=== PATIENT | male | born 1975 | race African-American/Black ===

== ENCOUNTER 2016-12-24 13:38 | Inpatient (IN) | payer MEDICAID, SELFPAY ==
[~2016-12-24] VITALS: Ht 170.2 cm; Wt 64.5 kg
[~2016-12-24 13:38] MED LIST: PAXI20TA OR; TRAZ100T OR
[2016-12-24 14:54] LABS: MEAN CORPUSCULAR HEMOGLOBIN 30.6 pg (27.0-33.0); MEAN CORPUSCULAR VOLUME 89.8 fl (80.0-96.0); PLATELET COUNT, AUTOMATED 253 10^3/uL (150-450); RED CELL DISTRIBUTION WIDTH 12.6 % (11.5-14.5); WHITE BLOOD COUNT 2.9 10^3/uL (4.0-10.0)
[2016-12-24 15:17] LABS: METHADONE URINE NEGATIVE (NEGATIVE)
[2016-12-24 15:23] LABS: BASO % 0.7 % (0.0-1.0); EOS % 0.7 % (0.0-3.0); LYMPH # 1.6 10^3/uL (1.5-4.5); LYMPH % 52.9 % (24.0-44.0); MONO # 0.2 10^3/uL (0.0-0.8); MONO % 8.1 % (0.0-5.0); NEUTROPHILS # 1.1 10^3/uL (1.8-7.7); NEUTROPHILS % 37.6 % (36.0-66.0)
[2016-12-24 15:25] LABS: ALBUMIN 3.9 GM/DL (3.2-5.2); ALBUMIN/GLOBULIN RATIO 1.22 (1.00-1.93); ALKALINE PHOSPHATASE 35 U/L (45-117); ALT/SGPT 47 U/L (12-78); ANION GAP 8 MEQ/L (8-16); AST/SGOT 42 U/L (7-37); BILIRUBIN,DIRECT 0.2 MG/DL (0.0-0.2); BILIRUBIN,TOTAL 0.7 MG/DL (0.2-1.0); BLOOD UREA NITROGEN 9 MG/DL (7-18); CALCIUM LEVEL 8.7 MG/DL (8.5-10.1); CARBON DIOXIDE LEVEL 26 MEQ/L (21-32); CHLORIDE LEVEL 108 MEQ/L (98-107); CREATININE FOR GFR 0.95 MG/DL (0.70-1.30); DIFF SLIDE NUMBER 294; GLOMERULAR FILTRATION RATE > 60.0 (>60); GLUCOSE, FASTING 81 MG/DL (70-105); POTASSIUM SERUM 4.4 MEQ/L (3.5-5.1); SODIUM LEVEL 142 MEQ/L (136-145); TOTAL PROTEIN 7.1 GM/DL (6.4-8.2)
[2016-12-24 22:01] VITALS: BP 120/68
[2016-12-25] MEDS ORDERED: MOM 30ML SUSPENSION UDC PO PRN (01:00)
[2016-12-25] MEDS ORDERED: OLANZapine ORAL DISINTEGRATING TAB 5MG PO PRN (01:00)
[2016-12-25] MEDS ORDERED: MAALOX 30 ML SUSP *UDC PO PRN (01:00)
[2016-12-25] MEDS ORDERED: traZODone 50 MG TAB PO PRN (01:00)
[2016-12-25 06:27] VITALS: BP 104/56
--- NOTE | 2016-12-25 08:41 | HPEPDOC ---
[facility] Medical History & Physical Date of Admission Dec 24, 2016 History and Physical PCP: None ATTENDING: Dr. Abimael Orantes HPI: 41yoM admitted to [facility] for unspecified depressive disorder, being medically examined today. No acute medical complaints today. Patient states today that he has been out of his medications for a few years. Denies any fevers, chills, weakness, fatigue, KAY, CP, SOB, cough, palpitations, abdominal pain, N/V/D or changes in bowel or bladder habits. PMHx: Depression Anxiety Insomnia PSHX: Left middle finger amputation related to wood splitter injury SOCHX: Resides in: [place] Marital Status: Kids: 6 Employment: Does odd jobs Tobacco use: One pack every 3 days ETOH: One to 2 drinks every other day Illicit Drugs: Marijuana every other day. History of cocaine IV Drug Use: Denies Tattoos done unprofessionally: 2 FAMHX: Mother: , [place] Father: Unknown Siblings: 2 Alive, well Children: Alive, well Unexpected deaths due to medical reasons: 1 Brother gunshot wound. ROS: As noted in HPI, otherwise 11pt ROS of systems reviewed and unremarkable. PE: GEN: 41yoM, appears stated age. Well-nourished, well developed. No acute distress. Alert and oriented x 3. Pleasant, interactive. HEENT: Normocephalic, atraumatic. Pupils are equal, round, and reactive to light. Extraocular movements are intact. No nystagmus appreciated. Sclera are nonicteric. Conjunctiva without injection. Nose midline. Nasal turbinates without bogginess. EACs both patent BL. TMs both visualized and wise with good cone of light, no bulging or erythema. No facial asymmetry. Moist mucous membranes. Dentition fair. Pharynx pink and moist, no cobblestoning. Neck supple , trachea midline. No lymphadenopathy or thyromegaly appreciated. CHEST: Regular rate and rhythm, +S1, +S2 LUNGS: Clear to auscultation bilaterally. No wheezes, rales, or rhonchi. Breathing appears symmetric and easy. Patient is speaking in full sentences. No accessory muscle use. ABD: Round, soft, non-tender, non-distended. +Bowel sounds throughout. No rebound or guarding. No costovertebral angle tenderness. EXT: Pulses 2+ bilaterally dorsalis pedis and radial. No lower extremity edema appreciated. SKIN: [place], dry, warm. Capillary refill <2sec. No rashes. NEURO: Alert and oriented x 3. Cranial nerves III-XII are intact. No focal deficits appreciated. EKG: Pending. A&P: 41yoM admitted to [facility] for unspecified depressive disorder 1. Psych. Plan per Psychiatry.Obtain baseline EKG to assure the safety of psychiatric medications as they can prolong the QT interval. 2. Nicotine dependence. Patch available. 3. Elevated AST. Recheck CMP. 4. Follow up. No Primary Care Provider. Will attempt to establish PCP on discharge. 5. Substance use. Per psychiatry. 6. Tattoos done unprofessionally. Patient agrees to HIV and hepatitis screening. 7. Add CBC to admission labs 8. Staff member Dmitriy present throughout exam. Vital Signs Vital Signs Date Time Temp Pulse Resp B/P (MAP) Pulse Ox O2 Delivery O2 Flow Rate FiO2 12/25/16 06:27 99.0 52 14 104/56 (72) 12/24/16 17:33 98 12/24/16 13:38 Room Air Laboratory Data Labs 24H Laboratory Tests 2 12/24/16 14:42: Immature Granulocyte % (Auto) 0.0, Neutrophils (%) (Auto) 37.6, Lymphocytes (%) (Auto) 52.9H, Monocytes (%) (Auto) 8.1H, Eosinophils (%) (Auto) 0.7, Basophils ( %) (Auto) 0.7, Immature Granulocyte # (Auto) 0.0, Neutrophils # (Auto) 1.1L, Lymphocytes # (Auto) 1.6, Monocytes # (Auto) 0.2, Eosinophils # (Auto) 0.0, Basophils # (Auto) 0.0, Nucleated Red Blood Cells % (auto) 0.0, Platelet Estimate , Anion Gap 8, Glomerular Filtration Rate > 60.0, Calcium Level 8.7, Aspartate Amino Transf (AST/SGOT) 42H, Alanine Aminotransferase (ALT/SGPT) 47, Alkaline Phosphatase 35L, Total Bilirubin 0.7, Direct Bilirubin 0.2, Total Protein 7.1, Albumin 3.9, Albumin/Globulin Ratio 1.22, Thyroid Stimulating Hormone (TSH) 0.640, Salicylates Level 2.5L, Urine Amphetamines Screen NEGATIVE , Urine Benzodiazepines Screen NEGATIVE, Urine Opiates Screen NEGATIVE, Urine Methadone Screen NEGATIVE, Acetaminophen Level < 2.0L, Urine Barbiturates Screen NEGATIVE, Urine Phencyclidine Screen NEGATIVE, Urine Cocaine Metabolite Screen POSITIVEH, Urine Cannabinoids Screen POSITIVEH, Ethyl Alcohol Level 0.012H CBC/BMP Laboratory Tests 12/24/16 14:42 Red Blood Count 4.22 L, Mean Corpuscular Volume 89.8, Mean Corpuscular Hemoglobin 30.6, Mean Corpuscular Hemoglobin Concent 34.0, Red Cell Distribution Width 12.6 Home Medications Scheduled Paroxetine (Paxil) 20 Mg Tab, 20 MG OR QAM Trazodone Hcl (Trazodone Hcl) 100 Mg Tab, 100 MG OR QHS Allergies Coded Allergies: Sertraline (Verified Adverse Reaction, Intermediate, STATES INCREASED BP, 05/24/12) No Known Allergies (Verified , 05/20/11) Tess Taylor Dec 25, 2016 08:41
[2016-12-25 09:18] LABS: MEAN CORPUSCULAR HEMOGLOBIN 30.8 pg (27.0-33.0); MEAN CORPUSCULAR HGB CONC 34.1 g/dl (32.0-36.5); MEAN CORPUSCULAR VOLUME 90.3 fl (80.0-96.0); PLATELET COUNT, AUTOMATED 247 10^3/uL (150-450); RED CELL DISTRIBUTION WIDTH 12.4 % (11.5-14.5); WHITE BLOOD COUNT 2.5 10^3/uL (4.0-10.0)
[2016-12-25 12:00] VITALS: BP 116/76
--- NOTE | 2016-12-25 17:11 | MHHPE ---
DATE OF ADMISSION: 12/25/2016 LEGAL STATUS AT ADMISSION: 9.39 legal status. CHIEF COMPLAINT: "I've been feeling very depressed." HISTORY OF PRESENT ILLNESS: A 41-year-old male with a history of depression and cocaine abuse, admitted to our unit on a 9.39 legal status. According to the record, patient came to the emergency department because of depression and suicidal thoughts. Patient states that he ran out of medication, because he was living between [place] and [place], so he could not followup with the doctor, so he ran out. He also said that he and his 3 weeks ago and has been feeling more depressed since then. Patient reports feeling depressed, hopeless, useless, "care less about nothing," low energy, insomnia, and intermittent suicidal thoughts. Patient admits to the use of cocaine. Says that he was sober for a prolonged period of time after he was discharged from our unit in 2011. His urine drug screen (UDS) was positive for cocaine and marijuana. His blood alcohol level was 0.12. During the interview there is no evidence of psychotic symptoms. No auditory or visual hallucinations or delusions. PAST MEDICAL HISTORY: Patient denies any acute medical problems. No allergies. PAST PSYCHIATRIC HISTORY: As above, patient was admitted to our service in 2011 for depression and cocaine abuse. Patient also stated that he was admitted three times in [place] and has a history of previous detoxification and rehabilitation programs in the past. FAMILY HISTORY: Patient denies any psychiatric family history. SUBSTANCE ABUSE HISTORY: Patient admits to the use of marijuana and cannabis. Denies other substances, although his blood alcohol level was 0.012. As above, he has history of cocaine and marijuana abuse and has been admitted to detoxification and rehabilitation programs in the past. SOCIAL HISTORY: Patient was raised by his mother. His parents . He graduated high school in special education. Reports having a learning disability in reading, spelling, and math. He has been incarcerated two times. Patient has poor support system. By his report, patient from his 3 weeks ago. Patient says that he rents an apartment here in town. PSYCHIATRIC REVIEW OF SYSTEMS: Bipolar disorder. No evidence of destructibility, grandiosity, fight of ideas, pressured speech, anxiety disorder. Denies panic, agoraphobia, obsessive-compulsive disorder (OCD), washing hands repeatedly, checking things over and over, somatization disorder. Screening for pain, conversion, gastrointestinal (GI), and sexual symptoms negative. Eat disorders: Screening for dieting, use of laxatives, eating in binges is negative. Cognitive disorders: Short and long-term memory impairment, orientation, and general information are negative for cognitive disorder. Psychotic disorders: No evidence of delusions, paranoia, grandiosity, or nondenominational preoccupation. No hallucination. No looseness of associations. PHYSICAL EXAMINATION: As per physician business development assistant. LABORATORY DATA: His CBC is unremarkable. CMP within normal limits except AST of 42. TSH within normal limits. Urine drug screen is positive for cocaine and cannabis. Blood alcohol level is 0.012. MENTAL STATUS EXAMINATION: Patient is dressed in [facility]. Patient is cooperative. His speech is soft and monotone. Has poor eye contact. Mood is anxious and depressed. Affect is restricted. Patient is oriented to time, place, person, and situation. Maintains attention and concentration correctly. Instant recall, recent and remote memory are intact. Thought processes are coherent, logical, and goal directed. Patient does not have auditory or visual hallucinations. Patient does not have paranoid, persecutory, somatic, grandiose, or nondenominational delusions. Patient is reporting suicidal thoughts but denies homicidal ideation. Judgment and insight are limited. DIAGNOSES: [place] I: Unspecified depressive disorder, rule out major depressive disorder, rule out substance-induced mood disorder. Cocaine and cannabis dependency. [place] II: Deferred. [place] III: None acute. Patient was admitted on a 9.39 legal status. Complete history was obtained. With his permission, family will be contacted and database will be expanded. His medication regimen will be reviewed and changed accordingly. He will be provided with protected environment. He will be treated with individual, group, and milieu therapy. He will also receive supportive psychoeducation. Discharge planning will commence immediately. Length of stay will be between 7-10 days. Outpatient followup will be strongly recommended. The treatment plan will focus initially on depression, risk for suicide, and substance abuse.
[2016-12-26 06:31] VITALS: BP 90/56
[2016-12-26 07:34] LABS: ALBUMIN 3.4 GM/DL (3.2-5.2); ALBUMIN/GLOBULIN RATIO 1.06 (1.00-1.93); ALKALINE PHOSPHATASE 31 U/L (45-117); ALT/SGPT 35 U/L (12-78); ANION GAP 5 MEQ/L (8-16); AST/SGOT 16 U/L (7-37); BILIRUBIN,TOTAL 0.5 MG/DL (0.2-1.0); BLOOD UREA NITROGEN 13 MG/DL (7-18); CALCIUM LEVEL 8.8 MG/DL (8.5-10.1); CARBON DIOXIDE LEVEL 30 MEQ/L (21-32); CHLORIDE LEVEL 105 MEQ/L (98-107); GLOMERULAR FILTRATION RATE > 60.0 (>60); GLUCOSE, FASTING 82 MG/DL (70-105); POTASSIUM SERUM 4.2 MEQ/L (3.5-5.1); SODIUM LEVEL 140 MEQ/L (136-145); TOTAL PROTEIN 6.6 GM/DL (6.4-8.2)
[2016-12-26] MEDS: PARoxetine 10MG TABLET PO SCH (09:09)
[2016-12-26 09:17] LABS: MEAN CORPUSCULAR HEMOGLOBIN 30.4 pg (27.0-33.0); MEAN CORPUSCULAR HGB CONC 33.4 g/dl (32.0-36.5); PLATELET COUNT, AUTOMATED 261 10^3/uL (150-450); RED CELL DISTRIBUTION WIDTH 12.2 % (11.5-14.5); WHITE BLOOD COUNT 3.5 10^3/uL (4.0-10.0)
[2016-12-26 18:00] VITALS: BP 121/63
--- NOTE | 2016-12-26 20:00 | ECGEPIP ---
Stationary ECG Study [facility] Test Date: 2016-12-25 Pat Name: ARNEL EDOUARD Department: Room: [place] [address] Gender: M Trash Collector Truck Driver: POWER : 1975 Requested By: Tess Taylor Order Number: [id number] Reading MD: Gayle Villalta Measurements Intervals [place] Rate: 60 P: 66 WI: 143 QRS: 70 QRSD: 96 T: 62 QT: 396 QTc: 398 Interpretive Statements SINUS RHYTHM WITH SINUS ARRHYTHMIA ST ELEVATION, PROBABLY EARLY REPOLARIZATION SIMILAR 05/18/11 Electronically Signed On 12-26-2016 20:00:40 EST by Gayle Villalta
[2016-12-26] MEDS: traZODone 100 MG TAB PO SCH (21:52)
--- NOTE | 2016-12-27 00:22 | MHIPN ---
DATE OF SERVICE: 12/26/2016 HISTORY: 41-year-old male with history of depression and cocaine abuse admitted for treatment of depression and suicidal thoughts. MEDICATIONS: - trazodone 50 mg by mouth nightly as needed for insomnia - Paxil 10 mg by mouth every morning SUBJECTIVE: "I'm feeling about the same." OBJECTIVE: Patient continues depressed with soft monotone speech, sad, restricted facial expression, psychomotor retardation. The patient appears to be motivated for treatment. Could not sleep well last night. No evidence of psychotic symptoms. MENTAL STATUS EXAMINATION: Patient is dressed in [facility]. Patient is cooperative has poor eye contact. Speech is soft and monotone. Mood is depressed and anxious. Affect is restricted. No evidence of delusions or hallucinations. Memory, attention and concentration are fair. Patient is able to contract for safety during the interview. Insight and judgment is limited. ASSESSMENT: 1. Depression. 2. Suicidal ideation. 3. Cocaine dependency. PLAN: 1. Continue Paxil 10 mg by mouth every morning. 2. Increase trazodone 100 mg by mouth nightly. 3. Continue medication management, individual and group therapy.
[2016-12-27 06:26] VITALS: BP 122/65
[2016-12-27] MEDS: PARoxetine 10MG TABLET PO SCH (08:34)
[2016-12-27] MEDS ORDERED: traZODone 50 MG TAB PO PRN (15:15)
[2016-12-27 18:00] VITALS: BP 139/54
[2016-12-27] MEDS: traZODone 100 MG TAB PO SCH (21:55)
--- NOTE | 2016-12-28 02:15 | MHIPN ---
DATE OF SERVICE: 12/27/2016 HISTORY: 41-year-old male with history of depression and cocaine abuse admitted for treatment of depression and suicidal thoughts. MEDICATIONS: - Paxil 10 mg by mouth every morning - trazodone 100 mg by mouth nightly SUBJECTIVE: "I'm feeling a little better." OBJECTIVE: Patient is improving slowly. He is less depressed. He is able to interact better with other patients and staff. Patient appears motivated for treatment. Denies side effect from the medication. No evidence of psychotic symptoms. No auditory or visual hallucinations or delusions. MENTAL STATUS EXAMINATION: Patient is dressed in [facility]. Patient is calm and cooperative has fair eye contact. Speech is slow and monotone, but improving. Mood is depressed and anxious, but also improving. Affect is less restricted. No delusions or hallucinations. Memory, attention and concentration are fair. Patient is able to contract for safety during his hospitalization. Insight and judgment is improving. ASSESSMENT: 1. Depression. 2. Suicidal ideation. 3. Cocaine dependency. PLAN: 1. Increase Paxil to 20 mg by mouth every morning. 2. Continue trazodone 100 mg by mouth nightly plus 50 mg by mouth as needed for insomnia. 3. Continue medication management, individual and group therapy.
[2016-12-28 06:27] VITALS: BP 108/67
[2016-12-28] MEDS: PARoxetine 20 MG TAB PO SCH (07:50)
[2016-12-28 18:00] VITALS: BP 124/61
--- NOTE | 2016-12-28 21:14 | MHIPN ---
DATE: 12/28/2016 HISTORY: A 41-year-old male with history of depression and cocaine abuse, admitted for treatment of depression and suicidal thoughts. MEDICATIONS: - Paxil 20 mg by mouth every morning - trazodone 100 mg by mouth at bedtime plus 50 mg by mouth as needed for insomnia SUBJECTIVE: "I'm feeling much better." OBJECTIVE: The patient continues improving. The patient has no longer psychomotor retardation. His facial expression has returned to baseline. The patient is less depressed. No evidence of psychotic symptoms. The patient is motivated for treatment. MENTAL STATUS EXAMINATION: The patient is dressed in [facility]. The patient is calm and cooperative. Speech is normal in rate, volume, and articulation. Mood is depressed but improving. Affect is less restricted. No delusions or hallucinations. Memory, attention and concentration are fair. The patient is able to contract for safety while in the hospital. Insight and judgment are fair. ASSESSMENT: 1. Depression. 2. Suicidal ideation. 3. Cocaine dependency. PLAN: 1. Paxil 20 mg by mouth every morning 2. Increase trazodone to 150 mg by mouth at bedtime plus 50 mg as needed for insomnia 3. Continue medication management, individual and group therapy.
[2016-12-28] MEDS: traZODone 50 MG TAB PO SCH (22:13)
[2016-12-29 06:00] VITALS: BP 111/58
[2016-12-29] MEDS: PARoxetine 20 MG TAB PO SCH (08:18)
[2016-12-29 18:00] VITALS: BP 106/64
[2016-12-29] MEDS: traZODone 50 MG TAB PO SCH (23:04)
[2016-12-29] MEDS: ACETAMINOPHEN TAB 650MG DOSE (2X325MG) PO PRN (23:04)
[2016-12-30 06:26] VITALS: BP 107/57
[2016-12-30] MEDS: PARoxetine 20 MG TAB PO SCH (08:18)
[2016-12-30] MEDS: ACETAMINOPHEN TAB 650MG DOSE (2X325MG) PO PRN (08:20)
[2016-12-30] MEDS ORDERED: TRAZO50TA PO (10:46)
--- NOTE | 2016-12-30 17:00 | MHDS ---
DATE OF ADMISSION: 12/24/2016 DATE OF DISCHARGE: 12/30/2016 LEGAL STATUS AT ADMISSION: 9.39 legal status. HISTORY OF PRESENT ILLNESS: 41-year-old male with a history of depression and cocaine abuse admitted to our unit in a 9.39 legal status. According to the record, the patient came to the emergency department because of depression and suicidal thoughts. The patient stated that he ran out of medication because he was living between [place] and [place], so he could not followup with a doctor so he ran out of medications. He said that he and his three weeks ago and has been feeling more depressed since then. He admits the use of cocaine after the separation. The patient reports feeling depressed, hopeless, useless, "care less about nothing," low energy, insomnia, and intermittent suicidal thoughts. The patient stated that he has been sober for a prolonged period of time and relapsed after the separation. During the interview, there is no evidence of psychotic symptoms. No auditory or visual hallucinations or delusions. LABORATORIES: At admission, his complete blood count (CBC) showed white blood cells were 2.5, hematocrit of 41, repeated CBC on 12/26/2016 showed white blood cells of 3.5, hemoglobin of 13.8, hematocrit of 41.3. CMP was unremarkable except AST of 42. Repeated CMP was within normal limits on 12/26/2016. His TSH was within normal limits. Urine drug screen at admission was positive for cocaine and cannabis and blood alcohol level was 0.012. HOSPITAL COURSE: After the first evaluation, the patient was started on Paxil 10 mg and subsequently increased to 20 daily and trazodone 50 mg by mouth at night. The trazodone had to be increased to 150 mg by mouth at night for the patient to be able to sleep well at night. The patient had no complications during this hospital admission. His mood recovered rather fast. He denied side effects from the medications. At the moment of discharge, the patient is denying suicidal ideation. No evidence of delusions. No hallucinations. He is motivated for treatment. He is smiling and interacting very well with other patients and staff. He is able to joke and was participating in all psychotherapeutic activities on the unit. MENTAL STATUS EXAMINATION: On discharge, the patient is calm and cooperative. He is dressed in [facility]. Speech is clear, coherent with normal rate and is spontaneous. Has good eye contact. Mood is euthymic. Affect is appropriate and congruent with mood. The patient is oriented to time, place, person and situation. Maintains attention and concentration correctly. Instant recall, recent and remote memory are intact. Thought processes are coherent, logical and goal directed. The patient does not have auditory or visual hallucinations. The patient does not have paranoid, persecutory, somatic, grandiose or adventism delusions. The patient is denying suicidal or homicidal ideation. Judgment and insight are fair. DISCHARGE DIAGNOSES: [place] I: Adjustment disorder with depressed and anxious mood. Cocaine abuse. Substance induced mood disorder. [place] II: Deferred. [place] III: None acute. CONDITION AT DISCHARGE: Stable. No auditory or visual hallucinations. No delusions. No suicidal or homicidal ideation. MEDICATION: At discharge: - Paxil 20 mg by mouth in the morning - trazodone 150 mg by mouth at night INSTRUCTIONS AT DISCHARGE: The patient is to continue taking his medication as prescribed and followup appointments. He is advised to maintain absolute sobriety from drugs and alcohol. The patient has a scheduled ap[ointment for medication management, individual psychotherapy and primary care physician.
== END 2016-12-30 12:05 | disposition home or self-care (01) | DRG 755 ==
LOC: M ED 13:38 → M ED INP 20:01 → M PSY 21:55
PROVIDERS: ADMIT Psychiatry & Neurology Psychiatry; ATTEND Psychiatry & Neurology Psychiatry
DX: F43.23 Adjustment disorder with mixed anxiety and depressed mood (principal); F14.10 Cocaine abuse, uncomplicated; F17.210 Nicotine dependence, cigarettes, uncomplicated; R74.0 Nonspecific elevation of levels of transaminase and lactic acid dehydrogenase [LDH]; F19.94 Other psychoactive substance use, unspecified with psychoactive substance-induced mood disorder; Z79.899 Other long term (current) drug therapy

== ENCOUNTER 2017-01-11 23:04 | Inpatient (IN) | payer MEDICAID, SELFPAY ==
[~2017-01-11] VITALS: Ht 170.2 cm; Wt 60.0 kg
[~2017-01-11 23:04] MED LIST changes: -PAXI20TA OR; +PAXI20TA PO; +TRAZO50TA PO
[2017-01-12 00:46] LABS: MEAN CORPUSCULAR HEMOGLOBIN 30.8 pg (27.0-33.0); MEAN CORPUSCULAR HGB CONC 34.3 g/dl (32.0-36.5); MEAN CORPUSCULAR VOLUME 89.7 fl (80.0-96.0); PLATELET COUNT, AUTOMATED 318 10^3/uL (150-450); WHITE BLOOD COUNT 4.8 10^3/uL (4.0-10.0)
[2017-01-12 01:11] LABS: METHADONE URINE NEGATIVE (NEGATIVE)
[2017-01-12 01:36] LABS: ALBUMIN 4.3 GM/DL (3.2-5.2); ALBUMIN/GLOBULIN RATIO 1.13 (1.00-1.93); ALKALINE PHOSPHATASE 44 U/L (45-117); ALT/SGPT 25 U/L (12-78); ANION GAP 11 MEQ/L (8-16); AST/SGOT 32 U/L (7-37); BILIRUBIN,DIRECT 0.2 MG/DL (0.0-0.2); BILIRUBIN,TOTAL 0.5 MG/DL (0.2-1.0); BLOOD UREA NITROGEN 11 MG/DL (7-18); CALCIUM LEVEL 9.3 MG/DL (8.5-10.1); CARBON DIOXIDE LEVEL 26 MEQ/L (21-32); CHLORIDE LEVEL 102 MEQ/L (98-107); CREATININE FOR GFR 0.97 MG/DL (0.70-1.30); GLOMERULAR FILTRATION RATE > 60.0 (>60); GLUCOSE, FASTING 74 MG/DL (70-105); POTASSIUM SERUM 4.4 MEQ/L (3.5-5.1); SODIUM LEVEL 139 MEQ/L (136-145); TOTAL PROTEIN 8.1 GM/DL (6.4-8.2)
[2017-01-12] MEDS ORDERED: TRAZ1TAB14 PO (02:39)
[2017-01-12] MEDS ORDERED: MOM 30ML SUSPENSION UDC PO PRN (03:00)
[2017-01-12] MEDS ORDERED: OLANZapine ORAL DISINTEGRATING TAB 5MG PO PRN (03:00)
[2017-01-12] MEDS ORDERED: ACETAMINOPHEN TAB 650MG DOSE (2X325MG) PO PRN (03:00)
[2017-01-12] MEDS ORDERED: traZODone 50 MG TAB PO PRN (03:00)
[2017-01-12] MEDS ORDERED: MAALOX 30 ML SUSP *UDC PO PRN (03:00)
[2017-01-12 03:10] VITALS: BP 135/78
[2017-01-12] MEDS: PARoxetine 20 MG TAB PO SCH (08:53)
--- NOTE | 2017-01-12 09:51 | MHHPE ---
DATE OF ADMISSION: 01/12/2017 LEGAL STATUS AT ADMISSION: 9.39 legal status. CHIEF COMPLAINT: "I've been feeling depressed, and I have suicidal thoughts." HISTORY OF PRESENT ILLNESS: 41-year-old male admitted to our unit on a 9.39 legal status. According to the record, patient says that he attempted to fill the scripts when he was discharged from our unit, but he was asked to pay as his insurance was not right and he has no money. Patient also reported that he did years working hours at [employer] [facility] [employer], but there is no record in EMR to support this. Patient reported that he was doing okay until a few days ago when he started experiencing auditory hallucination. Patient also admits that he has been self medicating with alcohol, marijuana, and cocaine, and he was experiencing significant depression and suicidal ideation. During the interview, there is no evidence of psychotic symptoms. Patient was just discharged from our unit on 12/30/2016. PAST MEDICAL HISTORY: Patient denies any acute medical problems. PAST PSYCHIATRIC HISTORY: Patient has been diagnosed with depression and cocaine abuse. Patient also says that he was admitted three times in [place]. He was just discharged from our unit on 12/30/2016. FAMILY HISTORY: Patient denies any psychiatric family history. SUBSTANCE ABUSE HISTORY: Patient admits the use of marijuana and cannabis. His urine drug screen this time was positive for opiates, cocaine, marijuana, and his blood alcohol level was 0.38. Patient has been admitted to detoxification and rehabilitation programs in the past. SOCIAL HISTORY: Patient was raised by his mother. His parents . He graduated high school in special education. Patient reports has a learning disability in reading, spelling, and math. Patient has been incarcerated two times. Patient has poor support system. Patient from his 3 weeks ago. Patient reports that he rents an apartment here in town. PSYCHIATRIC REVIEW OF SYSTEMS: Bipolar disorder: No evidence of distractibility, grandiosity, fight of ideas, pressured speech. Anxiety disorder: Patient denies panic, agoraphobia, obsessive-compulsive disorder (OCD), washing hands repeatedly, checking things over and over. Somatization disorder: Screening for pain, conversion, gastrointestinal (GI), and sexual symptoms are negative. Eat disorders: Screening for dieting, use of laxatives, eating in binges is negative. Cognitive disorders: Screening for memory impairment, orientation, and general information are negative for dementia. Psychotic disorders: No evidence of delusions, paranoia, grandiosity, or bahai preoccupation. No hallucination. No looseness of associations. MENTAL STATUS EXAMINATION: Patient dressed in [facility]. Patient is cooperative. His speech is soft and monotone. Patient has poor eye contact. Mood is anxious and depressed. Affect is restricted. Patient is oriented to time, place, person, and situation. Maintains attention and concentration correctly. Instant recall, recent, and remote memory are intact. Thought processes are coherent, logical, and goal directed. Patient does not have auditory or visual hallucinations during the interview. Patient does not have paranoid, persecutory, somatic, grandiose, or bahai delusions. Patient reports suicidal thoughts. Denies homicidal ideation. Judgment and insight are limited. DIAGNOSES: [place] I: Unspecified depressive disorder, substance-induced mood disorder. Cocaine and cannabis dependency, opiates and alcohol abuse. [place] II: Deferred. [place] III: None acute. INITIAL TREATMENT PLAN: Patient was admitted on a 9.39 legal status. Complete history was obtained. With his permission, family will be contacted and database will be expanded. His medication regimen will be reviewed and changed accordingly. He will be provided with protected environment. He will be treated with individual, group, and milieu therapy. He will also receive supportive psychoeducation. Discharge planning will commence immediately. Length of stay will be between 3 and 5 days. Outpatient followup will be strongly recommended. The treatment plan will focus initially on depression, risk for suicide, and substance abuse.
[2017-01-12] MEDS ORDERED: diphenhydrAMINE 50 MG CAP PO PRN (15:45)
[2017-01-12 18:00] VITALS: BP 138/88
[2017-01-12] MEDS: traZODone 50 MG TAB PO SCH (20:19)
--- NOTE | 2017-01-13 04:27 | HPE ---
DATE OF ADMISSION: 01/12/2017 HISTORY OF PRESENT ILLNESS: Please refer to psychiatric history and evaluation for further details on this admission. This examination is intended for medical issues, which may need treatment, followup or consult on this 41-year-old male. ALLERGIES: SERTRALINE. PRIMARY CARE PROVIDER: None. PAST MEDICAL HISTORY: 1. Depression. 2. Anxiety. 3. Insomnia. PAST SURGICAL HISTORY: Left middle finger amputation related to wood splitter injury. SOCIAL HISTORY: He is . He lives in [place]. He has six children. He smokes one pack of cigarettes approximately every 3 days. 1-2 drinks every other day. Illicit drug use: Marijuana, cocaine. FAMILY HISTORY: Noncontributory. HOME MEDICATIONS: - Paxil 20 mg by mouth every morning - trazodone 150 mg by mouth nightly REVIEW OF SYSTEMS: 10-system review was done. It was unremarkable. LABORATORY STUDIES: WBC 4.8, hemoglobin 14.3, hematocrit 41.7, platelets 318. CMP normal. Urine was positive for opiates, positive for cocaine, positive for cannabinoids. EtOH was 0.038. PHYSICAL EXAMINATION: 41-year-old cooperative male in no acute distress. Height 67 inches, weight 60 kg, body mass index (BMI) 20.7. Blood pressure 122/71, pulse 76, respirations 18, temperature 97.2. Patient is alert and oriented times three. Pupils equal and react to light. Extraocular muscles intact. Cornea and sclerae clear. Conjunctivae were normal. No facial asymmetry. Pharynx, tongue and gums pink and moist. Tongue is midline. Neck is supple without lymphadenopathy. No thyromegaly, no goiter. Carotids 2+ without bruit. Chest clear to auscultation without wheeze or retraction. Heart is regular. Abdomen is benign. Bowel sounds positive. Genitourinary/rectal: Not done. Extremities show equal strength, full range of motion. No cyanosis, clubbing or edema. Peripheral pulses equal and palpable bilaterally. Skin is warm and dry. IMPRESSION/PLAN: 1. Psychiatric plan per psychiatry. 2. Nicotine dependence. Patch available. EKG on file. 3. History of polysubstance abuse. Monitor for withdrawal. 4. Followup. Patient will attempt to establish primary care provider (PCP) on discharge. No acute medical issues.
[2017-01-13 06:00] VITALS: BP 115/73
[2017-01-13] MEDS: PARoxetine 20 MG TAB PO SCH (09:32)
--- NOTE | 2017-01-13 15:41 | MHIPN ---
DATE: 01/13/2017 HISTORY: 41-year-old male with history of depression and polysubstance dependency admitted for suicidal ideation. MEDICATIONS: - trazodone 150 mg by mouth nightly - Paxil 20 mg by mouth every morning SUBJECTIVE: "I have to go to rehab." OBJECTIVE: Patient has significantly improved from admission. Patient is able to smile. There is no psychomotor retardation. We discussed the fact that his urine drug screen was positive for cocaine, marijuana, and opiates, and he stated that "I probably have to go to rehab." There is no psychotic features, no auditory or visual hallucinations or delusions. MENTAL STATUS EXAMINATION: Patient is dressed in [facility]. Patient is calm and cooperative. His speech is clear, coherent with normal rate and is spontaneous. Patient has good eye contact. Mood is slightly depressed. Affect is congruent with mood. There is no evidence of delusions, no hallucinations. Memory, attention, and concentration are fair. Patient is denying suicidal or homicidal ideation. Insight and judgment is fair. ASSESSMENT: 1. Depression. 2. Suicidal ideation. 3. Polysubstance dependency. PLAN: 1. Continue trazodone 150 mg by mouth nightly. 2. Continue Paxil 20 mg by mouth every morning. 3. Continue medication management, individual and group therapy.
[2017-01-13 18:09] VITALS: BP 117/66
[2017-01-13] MEDS: traZODone 50 MG TAB PO SCH (21:43)
[2017-01-14 06:38] VITALS: BP 114/63
[2017-01-14] MEDS: PARoxetine 20 MG TAB PO SCH (09:33)
--- NOTE | 2017-01-14 16:11 | MHIPN ---
DATE: 01/14/2017 HISTORY: 41-year-old male with history of depression and polysubstance dependence admitted with suicidal ideation. MEDICATIONS: - trazodone 150 mg by mouth at night - Paxil 20 mg by mouth in the morning SUBJECTIVE: "I want to go inpatient." OBJECTIVE: No major changes. Patient appears depressed but has improved. No psychomotor retardation. Patient has low insight into his psychiatric illness/chemical dependency. He was positive for cocaine, marijuana and opiates in this readmission. No psychotic symptoms. No auditory or visual hallucinations and no delusions. MENTAL STATUS EXAMINATION: Patient dressed in [facility]. Patient is calm and cooperative. His speech is clear, coherent with normal rate and is spontaneous. Patient has fair eye contact. Mood is depressed. Affect is congruent with mood. No delusions and no hallucinations. Memory, attention, and concentration are fair. Patient is able to contract for safety during the interview. Insight and judgment is poor. ASSESSMENT: 1. Depression. 2. Suicidal ideation. 3. Polysubstance dependency. PLAN: 1. Increase trazodone to 200 mg at night. 2. Paxil 20 mg by mouth in the morning. 3. Continue medication management, individual, and group therapy.
[2017-01-14 18:00] VITALS: BP 116/64
[2017-01-14] MEDS: traZODone 100 MG TAB PO SCH (22:24)
[2017-01-15 06:32] VITALS: BP 88/50
[2017-01-15] MEDS: PARoxetine 20 MG TAB PO SCH (08:56)
--- NOTE | 2017-01-15 15:40 | MHIPN ---
DATE OF SERVICE: 01/15/2017 HISTORY: 41-year-old male with history of depression and polysubstance dependence admitted with suicidal ideation. MEDICATIONS: - Paxil 20 mg by mouth in the morning - trazodone 150 mg by mouth at night SUBJECTIVE: "I am feeling much better". OBJECTIVE: Patient has improved significantly from admission. Patient is able to smile. No psychomotor retardation. No restricted facial expression. Is interacting better with patients and staff. Patient also is excited about the fact that a bed will be available for him at discharge. He wants to go to inpatient rehabilitation. MENTAL STATUS EXAMINATION: Patient dressed in [facility]. Patient is cooperative. His speech is clear, coherent with normal rate and is spontaneous. Patient has good eye contact. Mood is depressed, but improved from admission. Affect is congruent with mood. No delusions. No hallucinations. Memory, attention, and concentration are fair. Patient is able to contract for safety during the interview. Insight and judgment is limited. ASSESSMENT: 1. Depression. 2. Suicidal ideation. 3. Polysubstance dependency. PLAN: 1. Continue trazodone 200 mg by mouth at night. 2. Continue Paxil 20 mg by mouth in the morning. 3. Continue medication management, individual, and group therapy. 4. A bed is available for him at discharge probably he can be discharged tomorrow if he continues improving.
[2017-01-15 18:00] VITALS: BP 125/71
[2017-01-15] MEDS: traZODone 100 MG TAB PO SCH (22:41)
[2017-01-16 06:48] VITALS: BP 108/57
[2017-01-16] MEDS: PARoxetine 20 MG TAB PO SCH (08:12)
--- NOTE | 2017-01-16 20:53 | MHDS ---
DATE OF ADMISSION: 01/12/2017 DATE OF DISCHARGE: 01/16/2017 HISTORY OF PRESENT ILLNESS: 41-year-old male admitted to our unit on a 9.39 legal status. According to the record, patient attempted to fill the prescriptions when he was discharged from our unit, but he was asked to pay since "my insurance was not right." Patient said he did not have any money. He said that he was doing well after discharge for a few days, but then says that he started experiencing auditory hallucinations. Patient also admitted to the use of alcohol, marijuana, and cocaine. Reported feeling very depressed with suicidal thoughts. During the interview today, there was no evidence of psychotic symptoms, no auditory or visual hallucinations or delusions. LABORATORY DATA AT ADMISSION: His CBC was unremarkable. CMP within normal limits. Urine drug screen was positive for opiates, cocaine, and cannabis. His blood alcohol level was 0.038. HOSPITAL COURSE: After the first evaluation, patient was restarted on Paxil 20 mg by mouth daily and trazodone 150 mg by mouth nightly, which were the medications he was discharged on last time. He tolerated well the medications. He had no complication during this hospital admission. Patient admitted that he could not maintain sobriety and he asked for a referral to an inpatient rehabilitation facility. On 01/16/2017, a bed became available, so he was accepted for treatment. He is discharged in a stable condition. His mood has improved significantly from admission. He appears to be motivated to followup treatment and recommendations for chemical dependency. MEDICATIONS AT DISCHARGE: - trazodone 200 mg by mouth nightly - Paxil 20 mg every morning MENTAL STATUS EXAMINATION AT DISCHARGE: Patient is dressed in [facility]. Patient is calm and cooperative. His speech is clear, coherent, with normal rate and is spontaneous. Patient has good eye contact. Mood is euthymic. Affect is appropriate and congruent with mood. Patient is oriented to time, place, person, and situation. Maintains attention and concentration correctly. Instant recall, recent, and remote memory are intact. Thought processes are coherent, logical, and goal-directed. Patient does not have auditory or visual hallucinations. Patient does not have paranoid, persecutory, somatic, grandiose, or religions delusions. Patient is denying suicidal or homicidal ideation. Judgment and insight are fair. DISCHARGE DIAGNOSES: AXIS I: Substance induced mood disorder. Adjustment disorder with depressed and anxious mood. Cocaine, cannabis dependency, opiate and alcohol abuse. AXIS II: Deferred. AXIS III: Non-acute. INSTRUCTIONS TO THE PATIENT: Patient is going to be transferred to an inpatient rehabilitation facility to continue his treatment there.
== END 2017-01-16 12:30 | DRG 755 ==
LOC: M ED 23:04 → M ED INP 01-12 02:46 → M PSY 01-12 03:10
PROVIDERS: ADMIT Psychiatry & Neurology Psychiatry; ATTEND Psychiatry & Neurology Psychiatry
DX: F43.23 Adjustment disorder with mixed anxiety and depressed mood (principal); F14.20 Cocaine dependence, uncomplicated; F19.94 Other psychoactive substance use, unspecified with psychoactive substance-induced mood disorder; F12.20 Cannabis dependence, uncomplicated; F17.210 Nicotine dependence, cigarettes, uncomplicated; F10.10 Alcohol abuse, uncomplicated; F11.10 Opioid abuse, uncomplicated; Z79.899 Other long term (current) drug therapy; Z88.8 Allergy status to other drugs, medicaments and biological substances; Z89.022 Acquired absence of left finger(s)